=== PATIENT | female | born 1980 | race Caucasian/White ===

== ENCOUNTER 2017-05-04 10:04 | Emergency (ER) | payer BC ==
[2017-05-04 10:42] VITALS: BP 134/86
--- NOTE | 2017-05-04 10:51 | ED ---
Throat Pain/Nasal Congestion - HPI Summary HPI Summary: 36F presents with right ear swelling and redness after bee sting two days ago. She denies any fever. she was stung by a bee on right ear two days ago. She has been taking bendaryl so swelling has stated down. She says over past day swelling and redness increased and has been spreading. no history of MRSA. states every time gets stung by a bee has cellulitic infection afterwards. no history of DM. denies any chest pain, SOB, or difficulty swallowing. - History of Current Complaint Chief Complaint: UCSkin Time Seen by Provider: 05/04/17 10:39 - Allergies/Home Medications Allergies/Adverse Reactions: Allergies Allergy/AdvReac Type Severity Reaction Status Date / Time Cefaclor [From [facility]] Allergy Unknown Verified 05/04/17 10:37 Reaction Details Home Medications: Home Medications diPHENhydraMINE PO* [Benadryl PO 25 MG TAB*] 25 mg PO TID PRN 05/04/17 [History Confirmed 05/04/17] PMH/Surg Hx/FS Hx/Imm Hx Endocrine/Hematology History: Denies: Hx Anticoagulant Therapy Respiratory History: Denies: Hx Asthma Infectious Disease History: No Infectious Disease History: Denies: Traveled Outside the [place] in Last 30 Days - Family History Known Family History: Negative: Diabetes - Social History Alcohol Use: None Substance Use Type: Reports: None Smoking Status (MU): Never Smoked Tobacco Type: Cigarettes Amount Used/How Often: 3/4 PPD Length of Time of Smoking/Using Tobacco: 11 YRS Have You Smoked in the Last Year: Yes Review of Systems Negative: Fever Positive: Ear Ache Negative: Chest Pain Negative: Shortness Of Breath Positive: Rash All Other Systems Reviewed And Are Negative: Yes Physical Exam Triage Information Reviewed: Yes Vital Signs On Initial Exam: Initial Vitals Temp Pulse Resp BP Pulse Ox 98.2 F 80 16 134/86 97 05/04/17 10:38 05/04/17 10:38 05/04/17 10:38 05/04/17 10:38 05/04/17 10:38 Vital Signs Reviewed: Yes Appearance: Positive: Well-Appearing Skin: Positive: Warm, Dry, Other - area of redness extends on right ear and 1cm below ear that is red and warm Head/Face: Positive: Normal Head/Face Inspection Eyes: Positive: Normal, EOMI, SHAKIRA, Conjunctiva Clear ENT: Positive: Normal ENT inspection, Pharynx normal, TMs normal, Other - no auditory canal involvement Respiratory/Lung Sounds: Positive: Clear to Auscultation, Breath Sounds Present Cardiovascular: Positive: Normal, RRR Musculoskeletal: Positive: Strength/ROM Intact Neurological: Positive: Normal Psychiatric: Positive: Normal Diagnostics - Vital Signs Vital Signs Temp Pulse Resp BP Pulse Ox 05/04/17 10:38 98.2 F 80 16 134/86 97 - Laboratory Lab Statement: Any lab studies that have been ordered have been reviewed, and results considered in the medical decision making process. EENT Course/Dx - Course Course Of Treatment: 36F presents with right ear swelling and redness after bee sting two days ago. She denies any fever. she was stung by a bee on right ear two days ago. She has been taking bendaryl so swelling has stated down. She says over past day swelling and redness increased and has been spreading. no history of MRSA. states every time gets stung by a bee has cellulitic infection afterwards. no history of DM. denies any chest pain, SOB, or difficulty swallowing. on exam right ear appear cellulitic with erythema and warmth to area. has unknown allergy to cefaclor so will treat with doxcycline. rash could also be allergic so will have continue bendaryl. mild amount of swelling so do not think steriod is needed at this time. medication reviewed. has pre-HTN blood pressures so will have follow up with primary in 5 days. patient understands and agrees with plan. - Differential Diagnoses Differential Diagnoses: Cellulitis, Other - local allergic reaction, abscess - Diagnoses Provider Diagnoses: Cellulitis of right ear Discharge - Discharge Plan Condition: Good Disposition: HOME Prescriptions: DOXYcycline CAP(*) [DOXYcycline 100MG CAP(*)] 100 mg PO BID #20 cap Patient Education Materials: Cellulitis (ED) Referrals: DOREEN Marshall [Primary Care Provider] - Additional Instructions: Take doxycycline twice a day for 10 days, take with food caution with sun exposure as will cause to burn Continue bendaryl every 6-8 hours Follow up with primary within 5 days Return to ED if develop fever, area of redness spreads after two days on antibiotics, or any new or worsening symptoms
== END 2017-05-04 11:01 | disposition home or self-care (01) ==
LOC: UCCORT 10:04
DX: H60.11 Cellulitis of right external ear (principal); T63.441A Toxic effect of venom of bees, accidental (unintentional), initial encounter; X58.XXXA Exposure to other specified factors, initial encounter
CPT/HCPCS: 99212; G0463

== ENCOUNTER 2017-09-16 16:29 | Emergency (ER) | payer BC ==
[2017-09-16 19:14] VITALS: BP 130/62
--- NOTE | 2017-09-16 19:20 | UC ---
Throat Pain/Nasal Krishan HPI - HPI Summary HPI Summary: Pt c/o sore throat, fever, chills, malaise, X 2 days. 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 ?: No Onset/Duration: Gradual Onset, Lasting Days, Still Present, Worse Since - osnet Severity: Moderate Pain Intensity: 3 Associated Signs & Symptoms: Positive: Dysphagia, Fever - Epiglottits Risk Factors Epiglottis Risk Factors: Negative - Allergies/Home Medications Allergies/Adverse Reactions: Allergies Allergy/AdvReac Type Severity Reaction Status Date / Time MS Cefaclor [From Ceclor] Allergy Unknown Verified 09/16/17 19:14 Reaction Details Home Medications: Home Medications Acetaminophen TAB* [Tylenol TAB*] 650 mg PO Q4H PRN 09/16/17 [History Confirmed 09/16/17] PMH/Surg Hx/FS Hx/Imm Hx Previously Healthy: Yes Other History Of: Negative For: Anticoagulant Therapy - Surgical History Surgical History: None - Family History Known Family History: Negative: Diabetes - Social History Occupation: Employed Full-time Lives: With Family Alcohol Use: None Substance Use Type: None Smoking Status (MU): Never Smoked Tobacco Type: Cigarettes Amount Used/How Often: 3/4 PPD Length of Time of Smoking/Using Tobacco: 11 YRS Have You Smoked in the Last Year: Yes Review of Systems Constitutional: Fever, Chills, Fatigue Skin: Negative Eyes: Negative ENT: Sore Throat Respiratory: Negative Cardiovascular: Negative Gastrointestinal: Negative Genitourinary: Negative Motor: Negative Neurovascular: Negative Musculoskeletal: Myalgia Neurological: Headache Psychological: Negative Is Patient Immunocompromised?: No All Other Systems Reviewed And Are Negative: Yes Physical Exam Triage Information Reviewed: Yes Appearance: Ill-Appearing Vital Signs: Initial Vital Signs Temp 99.2 F 09/16/17 19:09 Pulse 109 09/16/17 19:09 Resp 16 09/16/17 19:09 BP 130/62 09/16/17 19:09 Pulse Ox 96 09/16/17 19:09 Vital Signs Reviewed: Yes Eye Exam: Normal ENT Exam: Other ENT: Positive: Tonsillar swelling, Tonsillar exudate Dental Exam: Normal Neck: Positive: Enlarged Nodes @ - left submaxillary Respiratory Exam: Normal Cardiovascular Exam: Normal Musculoskeletal Exam: Normal Neurological Exam: Normal Psychological Exam: Normal Skin Exam: Normal Diagnostics - Laboratory Diagnostic Studies Completed/Ordered: rapid strep : positive Throat Pain/Nasal Course/Dx - Differential Dx/Diagnosis Differential Diagnosis/HQI/PQRI: Mononucleosis, Pharyngitis, Tonsillitis Provider Diagnoses: strep throat Discharge - Discharge Plan Condition: Stable Disposition: HOME Prescriptions: Azithromycin 500 mg PO DAILY #5 tablet Magic Mouth Was-DIANE/MAAL/LIDO* 5 ml SWISH SWAL QID PRN #100 ml PRN Reason: Pain predniSONE TAB* [Deltasone TAB*] 40 mg PO DAILY #6 tab Patient Education Materials: Strep Throat (ED) Referrals: DOREEN Marshall [Primary Care Provider] - If Needed
[2017-09-16] MEDS ORDERED: Azithromycin TAB* 250 MG PO ONE (19:29)
== END 2017-09-16 19:37 | disposition home or self-care (01) ==
LOC: UCCORT 16:29
DX: J02.0 Streptococcal pharyngitis (principal); F17.210 Nicotine dependence, cigarettes, uncomplicated
CPT/HCPCS: 87651; 99212; A9270-GY; G0463